=== PATIENT | female | born 1965 ===

== ENCOUNTER → 2018-04-18 | Outpatient (CLI) | payer OTHER ==
[~2018-04-18] MED LIST: Abilify5 MG; BUSP15; Budeprion Xl300 MG; GABA600; Omeprazole20 M1
== END ==
LOC: LAB SHORT 18:01 → LAB 18:01
PROVIDERS: Registered Nurse Community Health
DX: Z12.4 Encounter for screening for malignant neoplasm of cervix (principal)
CPT/HCPCS: 87624; G0123